=== PATIENT | female | born 1955 | race Caucasian/White ===

== ENCOUNTER → 2019-12-15 | Outpatient (CLI) | payer OTHER | LOC: RAD 14:06 | DX: J84.10 Pulmonary fibrosis, unspecified (principal); Z85.3 Personal history of malignant neoplasm of breast ==

== ENCOUNTER → 2021-09-23 | Outpatient (CLI) | payer OTHER | LOC: SJCVC 11:15 | PROVIDERS: ATTEND Internal Medicine Cardiovascular Disease | DX: I34.0 Nonrheumatic mitral (valve) insufficiency (principal); R06.00 Dyspnea, unspecified; E78.00 Pure hypercholesterolemia, unspecified; R60.0 Localized edema; E78.5 Hyperlipidemia, unspecified; Z88.0 Allergy status to penicillin; Z88.8 Allergy status to other drugs, medicaments and biological substances; Z82.49 Family history of ischemic heart disease and other diseases of the circulatory system; Z79.899 Other long term (current) drug therapy ==

== ENCOUNTER → 2021-10-11 | Outpatient (CLI) | payer OTHER | LOC: CAT 13:40 | PROVIDERS: ATTEND Internal Medicine Cardiovascular Disease | DX: Z13.6 Encounter for screening for cardiovascular disorders (principal); I25.10 Atherosclerotic heart disease of native coronary artery without angina pectoris; E78.00 Pure hypercholesterolemia, unspecified ==

== ENCOUNTER → 2021-10-19 | Outpatient (CLI) | payer OTHER | LOC: SJCVCIMAG 10:35 | PROVIDERS: ATTEND Internal Medicine Cardiovascular Disease | DX: R06.00 Dyspnea, unspecified (principal); I34.0 Nonrheumatic mitral (valve) insufficiency; E78.00 Pure hypercholesterolemia, unspecified; R60.0 Localized edema; Z88.0 Allergy status to penicillin; Z88.8 Allergy status to other drugs, medicaments and biological substances; Z91.012 Allergy to eggs; Z79.899 Other long term (current) drug therapy ==